=== PATIENT | female | born 1950 | race Caucasian/White ===

== ENCOUNTER 2024-07-29 18:26 | Emergency (ER) | payer MEDICARE, OTHER, SELFPAY ==
[2024-07-29 18:29] VITALS: BP 152/65
--- NOTE | 2024-07-29 19:10 | ED.GENMED ---
History of Present Illness
<JENNIFER Izquierdo - Last Filed: 07/29/24 21:01>
General
Chief Complaint: Fall
Source: patient
Exam Limitations: none
Time Seen by Provider: 07/29/24 18:34
History of Present Illness
History of Present Illness:
This is a 74 year old female that comes in with c/o fall. States that she went outside and she slipped on the wet leaves. States that she went right down and hit the right sided of her face and her knee on the right. States that it took her a few
minutes to get up. Denies any fever, chills, chest pain, SOB, abd pain, nausea, vomiting, diarrhea, headache, dizziness, urinary burning.
Past History
<JENNIFER Izquierdo - Last Filed: 07/29/24 21:01>
Past History
ED Past Medical History: Psychiatric (Anxiety, ) and Other (Arthritis, sleep apnea, ); Negative Asthma, HTN, Hypercholesterolemia or NIDDM
ED Past Surgical History: , Orthopedic (Wrist surgery) and Other (Deviated septum, Rhinoplasty, )
Social History
Tobacco: Non-smoker
Alcohol: Occasional
Personal:
Living: with family
Review of Systems
<JENNIFER Izquierdo - Last Filed: 07/29/24 21:01>
Review of Systems
All Other Systems: ROS reviewed and negative except as documented in HPI and ROS
Constitutional: Reports no symptoms; Denies fever or chills
EENT: Reports no symptoms
Respiratory: Reports no symptoms; Denies cough or trouble breathing
Cardiac: Reports no symptoms; Denies chest pain
ABD/GI: Reports no symptoms; Denies abdominal pain, nausea, vomiting or diarrhea
: Reports no symptoms; Denies dysuria, frequency or urgency
Musculoskeletal: Reports joint pain (right knee tenderness)
Skin: Reports other (Laceration over the bridge of the nose and right upper cheek. )
Neurological: Reports no symptoms; Denies dizzy or headache
Psychiatric: Reports no symptoms
Phy Exam
<JENNIFER Izquierdo - Last Filed: 07/29/24 21:01>
General Physical Exam
General Presentation: no apparent distress
General age: appears stated age
General Skin: warm and dry
General Habitus: elderly
General Mental: alert
General Hydration: appears well hydrated
ENT Exam
ENT Exam: TM's normal, pharynx normal and neck supple
Eye Exam
Eye Exam: EOMI
Cardiovascular Exam
Cardiovascular Exam: regular rate/rhythm, no edema and normal peripheral pulses
Pulmonary Exam
Pulmonary Exam: lungs clear, no respiratory distress, no rales, chest non tender, no crackles, no rhonchi, no wheezing and no cough
Gastrointestinal Exam
Gastrointestinal Exam: normal bowel sounds, non tender, soft, no organomegaly, no pulsatile mass and non distended
Musculoskeletal Exam
Musculoskeletal Exam: full ROM, no edema and other (Negative for cervical neck or spinal tenderness with palpation. Discomfort with flexion of the right knee. )
Skin Exam
Skin Exam: normal color, warm/dry, no petechia and laceration (Two small laceration to the bridge of the nose and right upper cheek laceration. )
Psychiatric Exam
Psychiatric Exam: normal mood/affect
Course
<JENNIFER Izquierdo - Last Filed: 07/29/24 21:01>
Orders/Labs/Results
Orders:
Orders
07/29/24 19:09
CT Facial Bones W/o Iv Contras Urgent
Comment:
Reason For Exam: fall right sided of face
CT Head W/o Iv Contrast Urgent
Comment:
Reason For Exam: fall hitting head
Tetanus/Diphth/Acelpertussis [Adacel] 0.5 ml IM .ONCE ONE
07/29/24 19:10
CR Knee- Right 4 Or More View* Urgent
Comment:
Reason For Exam: fall, knee tenderness
07/29/24 20:52
Cephalexin Monohydrate [Keflex] 500 mg PO NOW STA
07/29/24 20:54
Acetaminophen [Tylenol] 1,000 mg PO NOW STA
Vital Signs
Initial and Last Documented VS:
Initial Vital Signs
Temp Pulse Resp BP Pulse Ox
98.2 F 80 16 152/65 100
07/29/24 18:29 07/29/24 18:29 07/29/24 18:29 07/29/24 18:29 07/29/24 18:29
Last Documented Vital Signs
Temp Pulse Resp BP Pulse Ox
98.2 F 80 16 152/65 100
07/29/24 18:29 07/29/24 18:29 07/29/24 18:29 07/29/24 18:29 07/29/24 18:29
<Sathya Chen, DO - Last Filed: 07/29/24 21:26>
Orders/Labs/Results
Orders:
Orders
07/29/24 19:09
CT Facial Bones W/o Iv Contras Urgent
Comment:
Reason For Exam: fall right sided of face
CT Head W/o Iv Contrast Urgent
Comment:
Reason For Exam: fall hitting head
Tetanus/Diphth/Acelpertussis [Adacel] 0.5 ml IM .ONCE ONE
07/29/24 19:10
CR Knee- Right 4 Or More View* Urgent
Comment:
Reason For Exam: fall, knee tenderness
07/29/24 20:52
Cephalexin Monohydrate [Keflex] 500 mg PO NOW STA
07/29/24 20:54
Acetaminophen [Tylenol] 1,000 mg PO NOW STA
Vital Signs
Initial and Last Documented VS:
Initial Vital Signs
Temp Pulse Resp BP Pulse Ox
98.2 F 80 16 152/65 100
07/29/24 18:29 07/29/24 18:29 07/29/24 18:29 07/29/24 18:29 07/29/24 18:29
Last Documented Vital Signs
Temp Pulse Resp BP Pulse Ox
98.2 F 80 16 152/65 100
07/29/24 18:29 07/29/24 18:29 07/29/24 18:29 07/29/24 18:29 07/29/24 18:29
Procedures
<JENNIFER Izquierdo - Last Filed: 07/29/24 21:01>
Laceration Closure
Right Upper Cheek:
Status of Wound: clean
Size of Wound in cm: 4
Description of Wound Edges: sharp
Preparation: cleaned with saline
Anesthesia: 1% Lidocaine
Revision/Debridement: routine- no revision
Wound exploration: explored to base- no FB
Type of Closure: single layer closure
Skin Closure Material: 6-0 nylon
Number of sutures: 6
Upper Nose:
Status of Wound: clean
Size of Wound in cm: 2
Description of Wound Edges: sharp
Preparation: cleaned with saline
Anesthesia: 1% Lidocaine
Revision/Debridement: routine- no revision
Wound exploration: explored to base- no FB
Type of Closure: single layer closure
Skin Closure Material: 6-0 nylon
Number of sutures: 2
Additional information:
2 sutures in lower laceration and 1 in the upper laceration.
<JENNIFER Izquierdo - Last Filed: 07/29/24 21:01>
MDM/Problems Addressed
Differential Diagnosis Includes:
facial fractures, lacerations to face, Knee contusion
MDM/Problems Addressed:
This is a 74 year old female that comes in with c/o fall. States that she slipped on the leaves and fell onto the right sided of her face and right knee.
Will suture laceration and get CT of the facial bones and CT head. Will also give Adacel
Back into see patient. Explained that her CT of the head is negative for any acute process that there is a questionable nasal fracture, but age is undetermined. Patient has had [address] patient on antibiotic as she also has
lacerations over the bridge of the nose. Otherwise there are no other fractures. Patient knee is negative for fracture that there is a foreign object at the base of the knee below the Small laceration. Patient states that this has been there for
years. Will have patient follow up with her dentist. Patient to keep the laceration clean with warm soapy water but do not scrub. Patient to return with any conccerns.
Chronic conditions affecting care:
NA
Acute Exacerbation and/or Progression of Chronic Illness:
NA
<JENNIFER Izquierdo - Last Filed: 07/29/24 21:01>
*Radiology
Radiology exam reviewed: preliminary read by ED provider (right knee=negative for right knee fracture. ) and radiology read reviewed (CT head-No acute intracranial abnormality. CT facial bones- possible nasal bone fractures, age indeterminate.
Otherwise, no additional findings to suggest facial bone or orbital wall fracture bilaterally.)
*Pulse Oximetry
Patient hypoxic: no
*EKG
Interpreted by ED Provider?: NA
Rate: EKG- N/A
*Char Filter Tank Tender Head Interpretation
Rate: Char Filter Tank Tender Head- N/A
*Critical Care Note
Total Time (30-74mins, 75-104mins- exclusive of procedures): Not Applicable
ED Attending Note
<JENNIFER Izquierdo - Last Filed: 07/29/24 21:01>
-
Portions of this chart may have been created with voice recognition software.� Occasional wrong word or��sound alike� substitutions may have occurred due to the inherent limitations of voice recognition software.
<Sathya Chen, - Last Filed: 07/29/24 21:26>
ED Attending Note
Patient seen and examined by attending physician: Yes
I performed the substantive portion of visit, reviewed & personally made and approve the management plan that is documented in note by myself or SHARONDA.: Yes
ED Attending Note:
I agree with Eveline's note.
Pt fell sustaining injury to right knee, right face with lacerations. No focal weakness.
Exam
Awake, alert
Neuro: non-focal
Ext: right knee with laceration, rom intact, no effusion
CT head/neck shows no acute injury
Knee x-ray- No fx noted but there is a subcutaneous forign body noted over tibia. Pt's laceration is more superior to the f.b. On questioning pt had a fall [place] court several months ago. The f.b. is palpable in the area of the tibial
tuberosity distant from the laceration.
Discharge Plan
Departure
Patient Disposition: Home (Routine Discharge)
Date of Disposition: 07/29/24
Time of Disposition: 20:55
Patient with high blood pressure during this ER visit?: Yes
Condition: Good
Covid-19: Not Applicable
Discharge Problem:
Accidental fall, Face lacerations, Questionable nasal fracture
Instructions: Laceration Repair With Glue (DC), Laceration Repair With Stitches (DC), Preventing falls in adults, BLOOD PRESSURE
Prescriptions:
New
cephalexin 500 mg capsule
500 mg PO BID 7 Days Qty: 14 0RF
Referrals:
ANA MORRISON [Other]
Activity Restrictions/Additional Instructions:
As discussed, your CT of the head is negative for any acute process. The facial bones shows that there is a fracture of the nose but the age is indeterminate. You have had your facial laceration repaired and the suture will need to be removed in 5-7
days. You have glue with steri strips on the right knee. Please just pat these area's with warm soapy water but do not scrub. You have been given an antibiotic due to the nasal fracture and the lacerations of the nose. You may use Tylenol 1000mg
every 6 hours for headache pain. IF YOU HAVE ANY OTHER CONCERNS PLEASE RETURN TO THE EMERGENCY ROOM .
Interventions
Interventions:
*Risk Screen - Suicide Last Done: 07/29/24 18:29
*Neglect/Abuse Screening Last Done: 07/29/24 18:29
ED- Fall Risk Assessment Last Done: 07/29/24 21:21
*Nursing Disposition Last Done: 07/29/24 21:21
ED-Musculoskeletal Assessment Last Done: 07/29/24 19:25
ED- Neurological Assessment Last Done: 07/29/24 19:25
ED-Skin Assessment Last Done: 07/29/24 19:25
Discharge Date and Time
Print Language: ALBANIAN
[2024-07-29] MEDS: ADACEL 0.5 ML IM (19:49)
[2024-07-29] MEDS: TYLENOL 1000 MG PO (21:03)
[2024-07-29] MEDS: KEFLEX 500 MG PO (21:04)
[2024-07-29 21:21] VITALS: BP 133/59
== END 2024-07-29 21:24 | disposition home or self-care (01) ==
LOC: EMR 18:26
PROVIDERS: EMERGENCY PHYSICIAN Emergency Medicine
DX: S01.81XA Laceration without foreign body of other part of head, initial encounter (principal); S01.21XA Laceration without foreign body of nose, initial encounter; W19.XXXA Unspecified fall, initial encounter; Z23 Encounter for immunization; R03.0 Elevated blood-pressure reading, without diagnosis of hypertension
CPT/HCPCS: 99285; 12014; 90471; 70450; 70486; 73564; 90715